=== PATIENT | female | born 1950 | race Two or more races ===

== ENCOUNTER 2016-05-28 08:17 | Inpatient (IN) | payer OTHER ==
[2016-05-28] MEDS ORDERED: SODIUM CHLORIDE 1,000 ML IV STA (08:53)
[2016-05-28] MEDS ORDERED: FAMOTIDINE 20 MG/50 ML IVPB 50 ML IVPB ONE (08:53)
[2016-05-28 09:48] LABS: BASOPHIL 0.6 % (0-2.0); EOSINOPHIL 0.8 % (0-4.5); MCH 27.5 pg (25.7-33.7); MCHC 32.1 g/dl (32.0-36.0); MEAN CELL VOLUME 85.7 fl (80-96); MEAN PLT VOLUME 9.7 fl (7.5-11.1); NEUTROPHILS 78.2 % (42.8-82.8); PLATELET COUNT 262 K/MM3 (134-434); RDW 14.4 % (11.6-15.6); WHITE BLOOD COUNT 10.9 K/mm3 (4.0-10.0)
[2016-05-28 10:14] LABS: ALBUMIN 3.9 g/dl (3.4-5.0); ANION GAP 10 (8-16); CALCIUM 9.4 mg/dL (8.5-10.1); CO2 25 mmol/L (21-32); CREATININE 0.8 mg/dL (0.55-1.02); GLUCOSE,RANDOM 99 mg/dL (74-106); SGPT/ALT 22 U/L (12-78)
[2016-05-28 10:31] LABS: BILIRUBIN,TOTAL 0.8 mg/dL (0.2-1.0); TOT PROT 7.3 g/dl (6.4-8.2)
[2016-05-28 10:32] LABS: ALK PHOS 69 U/L (45-117)
[2016-05-28 10:44] LABS: SGOT/AST 20 U/L (15-37)
--- NOTE | 2016-05-28 10:55 | PDOC ---
History of Present Illness - General Chief Complaint: Lightheaded Stated Complaint: DIZZINES,NAUSEA Time Seen by Provider: 05/28/16 09:02 History Source: Patient Exam Limitations: No Limitations - History of Present Illness Initial Comments: 05/28/16 13:02 HPI: This 65-year-old female comes in via ambulance with complaints of nausea and dizziness. She states it started this morning upon awakening. She states the room is spinning. She did not take anything today for medications. She does not have a fever and denies any vomiting, abdominal pain, headache, visual disturbances. Chief Compliant: Nausea and dizziness PMH: Hypothyroidism however 5 years ago it was determined she did not need any medications for this and was stopped. Recently has had chronic back pain from a fall in March taking naproxen 3 times a day. FH: Pt has not recently traveled outside the country in the last 30 days. Pt has not been in contact with people who have traveled out of the country, in contact with people who have been ill with fever, n, v, d. SH: smoking use: NONE illicit drug use: NONE alcohol use: NONE employment/educational status: sexual history: PSH: Denies Home med use noted on APR Allergies: NKDA Immunizations: PCP: Not on service and is in [place] Past History - Past Medical History Allergies/Adverse Reactions: Allergies Allergy/AdvReac Type Severity Reaction Status Date / Time No Known Allergies Allergy Verified 05/28/16 09:14 Home Medications: Ambulatory Orders NK [No Known Home Medication] 05/28/16 Asthma: Yes (environmental allergies induced) - Surgical History Cholecystectomy: Yes - Psycho/Social/Smoking Cessation Hx Anxiety: No Suicidal Ideation: No Smoking History: Never smoked Have you smoked in the past 12 months: No Information on smoking cessation initiated: No Hx Alcohol Use: No Drug/Substance Use Hx: No Substance Use Type: None Review of Systems - Review of Systems Able to Perform ROS?: Yes Comments:: 05/28/16 13:04 General statement: Feeling lightheaded and dizzy as well as some nausea without any fever or chills Hematology: neg history of bleeding/blood thinners Skin: Neg for lesions, rash, bruising. HEENT: Neg symptoms Respiratory: Neg SOB or difficulty in breathing Cardiac: Neg chest pain GI: Neg pain, positive for nausea without vomiting : Neg problems on voiding MS: Neg for joint pain/stiffness, no edema Neuro: Neg for LOC, weakness, positive dizziness Endocrine: Neg for excess thirst/hunger, cold/heat intolerance, excess sweating Allergies: Neg for allergies *Physical Exam - Vital Signs Last Vital Signs Temp Pulse Resp BP Pulse Ox 97 F L 57 L 18 150/76 100 05/28/16 08:20 05/28/16 08:20 05/28/16 08:20 05/28/16 08:20 05/28/16 08:20 - Physical Exam Comments: 05/28/16 13:05 General Appearance: This well appearing 65-year-old female V/S: hemodynamically stable, afebrile Skin: WNL of pt's skin color, no signs of pallor, mottling, cyanosis Head:symmetrical Eyes: EOM's intact, PERRLA Ears: denies pain Nose: patent Throat: lips, teeth, gums, tongue, buccal mucos pink and moist Lungs: Chest symmetry equal. Cap refill <3 seconds. Lung sounds clear Cardiac: PMI at R 4MCL space, pos S1 and S2, regular rate. Abdomen: Soft, round, nontender : Not observed Muscularskeletal: Gait steady, ambulated in to ER, no edema +PMS Neuro: AAOx3, cognitively intact, speech clear and appropriate. ED Treatment Course - LABORATORY CBC & Chemistry Diagram: 05/28/16 08:58 05/28/16 08:58 - ADDITIONAL ORDERS Additional order review: Laboratory Results 05/28/16 08:58 Sodium 141 Potassium 4.9 Chloride 106 Carbon Dioxide 25 Anion Gap 10 BUN 18 Creatinine 0.8 Creat Clearance w eGFR > 60 Random Glucose 99 Calcium 9.4 Total Bilirubin 0.8 AST 20 ALT 22 Alkaline Phosphatase 69 Total Protein 7.3 Albumin 3.9 Lipase 154 05/28/16 08:58 RBC 4.80 MCV 85.7 MCHC 32.1 RDW 14.4 MPV 9.7 Neutrophils % 78.2 Lymphocytes % 14.5 Monocytes % 5.9 Eosinophils % 0.8 Basophils % 0.6 - RADIOLOGY Radiology Studies Ordered: Category Date Time Status CHEST X-RAY PORTABLE* [RAD] Stat Radiology 05/28/16 08:53 Completed - Medications Given in the ED: ED Medications Discontinued Medications Generic Name Dose Route Start Last Admin Trade Name Freq PRN Reason Stop Dose Admin Famotidine/Sodium Chloride 50 mls @ 100 mls/hr 05/28/16 08:53 05/28/16 09:32 Pepcid 20 Mg Premixed Ivpb - IVPB 05/28/16 09:22 100 mls/hr ONCE ONE Administration Sodium Chloride 1,000 mls @ 1,000 mls/hr 05/28/16 08:53 05/28/16 09:22 Normal Saline - IV 05/28/16 09:52 1,000 mls/hr ASDIR STA Administration Medical Decision Making - Medical Decision Making 05/28/16 13:05 Patient was initially seen and examined. Patient found to have some dizziness especially when lifted up however on her EKG she was noted to have a heart rate in the 50s. She does not recall what her normal is and she does not typically take beta blockers. She was given some Zofran in the ambulance and now she states that her nausea has subsided. At this time she is also noted to have some flipped T's in her aVL. She will need admission for cardiac enzymes evaluation as well as monitoring her heart rate. I have called and spoken with Dr. Call who will be admitting her for telemetry observation with Dr. cabrera as a consult. *DC/Admit/Observation/Transfer Diagnosis at time of Disposition: Dizziness, Bradycardia - Discharge Dispostion Condition at time of disposition: Stable Admit: Yes
[2016-05-28 11:10] LABS: TROPONIN I < 0.02 ng/ml (0.00-0.05)
--- NOTE | 2016-05-28 11:14 | EKG ---
Test Reason : Blood Pressure : / mmHG Vent. Rate : 054 BPM Atrial Rate : 054 BPM P-R Int : 146 ms QRS Dur : 084 ms QT Int : 436 ms P-R-T Axes : 047 040 069 degrees QTc Int : 413 ms SINUS BRADYCARDIA WITH SINUS ARRHYTHMIA OTHERWISE NORMAL ECG NO PREVIOUS ECGS AVAILABLE Confirmed by ASTON KOCH MD ([id number]) on 05/28/2016 11:14:17 AM Referred By: Confirmed By:ASTON KOCH MD
--- NOTE | 2016-05-28 11:43 | PDOC ---
[id number]/76 100 05/28/16 08:20 05/28/16 08:20 05/28/16 08:20 05/28/16 08:20 05/28/16 08:20 - Physical Exam Comments: 05/28/16 11:41 well appearing. regular bradycardia neuro intact Heart Score/ECG Review #1 General ECG Interpretation: Sinus Rhythm, Normal Rate (shi 57), Normal Intervals, No acute ischemic changes (TWI AVL) ED Treatment Course - LABORATORY CBC & Chemistry Diagram: 05/28/16 08:58 05/28/16 08:58 - ADDITIONAL ORDERS Additional order review: Laboratory Results 05/28/16 08:58 Sodium 141 Potassium 4.9 Chloride 106 Carbon Dioxide 25 Anion Gap 10 BUN 18 Creatinine 0.8 Creat Clearance w eGFR > 60 Random Glucose 99 Calcium 9.4 Total Bilirubin 0.8 AST 20 ALT 22 Alkaline Phosphatase 69 Creatine Kinase 90 Troponin I < 0.02 Total Protein 7.3 Albumin 3.9 Lipase 154 05/28/16 08:58 RBC 4.80 MCV 85.7 MCHC 32.1 RDW 14.4 MPV 9.7 Neutrophils % 78.2 Lymphocytes % 14.5 Monocytes % 5.9 Eosinophils % 0.8 Basophils % 0.6 - Medications Given in the ED: ED Medications Discontinued Medications Generic Name Dose Route Start Last Admin Trade Name Freq PRN Reason Stop Dose Admin Famotidine/Sodium Chloride 50 mls @ 100 mls/hr 05/28/16 08:53 05/28/16 09:32 Pepcid 20 Mg Premixed Ivpb - IVPB 05/28/16 09:22 100 mls/hr ONCE ONE Administration Sodium Chloride 1,000 mls @ 1,000 mls/hr 05/28/16 08:53 05/28/16 09:22 Normal Saline - IV 05/28/16 09:52 1,000 mls/hr ASDIR STA Administration Medical Decision Making - Medical Decision Making 05/28/16 11:42 Patient seen and evaluated with the nurse practitioner. I agree with the overall evaluation, assessment, and management with the following summary of visit: 65y/o F with light-headedness and near syncope. VSS and exam normal except for sinus shi to 50s. Labs wnl. admitted to tele for shi monitoring, less consistent with central vertigo. *DC/Admit/Observation/Transfer Diagnosis at time of Disposition: Dizzy, Bradycardia - Discharge Dispostion Condition at time of disposition: Stable - Prescriptions
[2016-05-28 17:39] LABS: TROPONIN I < 0.02 ng/ml (0.00-0.05)
--- NOTE | 2016-05-28 19:46 | HP ---
Admitting History and Physical - Primary Care Physician PCP: Carroll Sood - Admission History of Present Illness: This 65-year-old female comes in via ambulance with complaints of nausea and dizziness. She states it started this morning upon awakening. She states the room is spinning. She did not take anything today for medications. She does not have a fever and denies any vomiting, abdominal pain, headache, visual disturbances. - Smoking History Smoking history: Never smoked Have you smoked in the past 12 months: No - Alcohol/Substance Use Hx Alcohol Use: No Home Medications - Allergies Allergies/Adverse Reactions: Allergies Allergy/AdvReac Type Severity Reaction Status Date / Time No Known Allergies Allergy Verified 05/28/16 09:14 - Home Medications Home Medications: Ambulatory Orders Meclizine HCl [Antivert -] 12.5 mg PO Q6HPO #20 tablet 05/29/16 Physical Examination Vital Signs: Vital Signs Temperature 97.6 F 05/28/16 17:20 Pulse Rate 71 05/28/16 17:20 Respiratory Rate 19 05/28/16 17:20 Blood Pressure 134/83 05/28/16 17:20 O2 Sat by Pulse Oximetry (%) 97 05/28/16 17:20 Constitutional: Yes: Anxious HENT: Yes: Atraumatic Neck: Yes: Supple Cardiovascular: Yes: Regular Rate and Rhythm, Bradycardia Respiratory: Yes: CTA Bilaterally Gastrointestinal: Yes: Normal Bowel Sounds Extremities: Yes: WNL Neurological: Yes: Alert, Oriented Problem List - Problems (1) Bradycardia Assessment/Plan: tele monitoring fu cardiac enzymes cardiology consult Code(s): R00.1 - BRADYCARDIA, UNSPECIFIED (2) Dizzy Assessment/Plan: could be BP vertigo will start meclizine Code(s): R42 - DIZZINESS AND GIDDINESS Assessment/Plan Laboratory Tests 05/28/16 05/28/16 05/28/16 08:58 08:58 16:48 WBC 10.9 H RBC 4.80 Hgb 13.2 Hct 41.1 MCV 85.7 MCHC 32.1 RDW 14.4 Plt Count 262 MPV 9.7 Neutrophils % 78.2 Lymphocytes % 14.5 Monocytes % 5.9 Eosinophils % 0.8 Basophils % 0.6 Sodium 141 Potassium 4.9 Chloride 106 Carbon Dioxide 25 Anion Gap 10 BUN 18 Creatinine 0.8 Creat Clearance w eGFR > 60 Random Glucose 99 Calcium 9.4 Total Bilirubin 0.8 AST 20 ALT 22 Alkaline Phosphatase 69 Creatine Kinase 90 77 Troponin I < 0.02 < 0.02 Total Protein 7.3 Albumin 3.9 Lipase 154
[2016-05-28] MEDS ORDERED: ACETAMINOPHEN 325 MG TABLET (FP) PO PRN (19:54)
[2016-05-28] MEDS ORDERED: MECLIZINE HCL 12.5 MG TABLET ONE (21:14)
[2016-05-28] MEDS: MECLIZINE HCL 12.5 MG TABLET PO SCH (21:25)
[2016-05-29] MEDS: MECLIZINE HCL 12.5 MG TABLET PO SCH ×4 (00:02→18:04)
[2016-05-29 01:32] VITALS: BP 143/92; PULSE 66
[2016-05-29] MEDS ORDERED: MECLIZINE HCL 12.5 MG TABLET ONE (05:11)
[2016-05-29 15:35] VITALS: TEMP 98.8
[2016-05-29 17:54] VITALS: BMI 36.0
--- NOTE | 2016-05-29 18:05 | PN ---
Progress Note (short form) - Note Progress Note: Chief Complaint: Events noted, notes reviewed, dizziness with associated nausea and diaphoresis consistent with benign positional vertigo and vagal stimulation , asymptomatic sinus bradycardia History of Present Illness: Seen and examined and examined in the ICU as telemetry hold. Full consult dictated - Current Medication List Current Medications Acetaminophen (Tylenol -) 650 mg PO Q6H PRN PRN Reason: FEVER OR PAIN Meclizine HCl (Antivert -) 12.5 mg PO Q6HPO BETI Last Admin: 05/29/16 13:36 Dose: 12.5 mg Review of Systems Cardiovascular: As noted above Respiratory: denies: denies: Cough or Sputum Production Gastrointestinal: reports: Nausea denies: Vomiting, Diarrhea, Constipation or Abdominal Discomfort Musculoskeletal: No Symptoms Reported Endocrine: No Symptoms Reported - Objective Vital Signs: Last Vital Signs Temp Pulse Resp BP Pulse Ox 98.8 F 66 18 143/92 97 05/29/16 15:31 05/29/16 01:31 05/29/16 15:31 05/29/16 01:31 05/28/16 23:58 Neck: Supple Negative JVD No Bruit Cardiovascular: S1 S2 Regular Rate and Rhythm No Murmurs Clicks or Gallops Respiratory: Clear to A&P Gastrointestinal: Soft Benign Normal Bowel Sounds Ext: Negative Edema Labs: CBC, BMP 05/28/16 08:58 05/28/16 08:58 Hepatic Panel Total Bilirubin 0.8 mg/dL (0.2-1.0) 05/28/16 08:58 AST 20 U/L (15-37) 05/28/16 08:58 ALT 22 U/L (12-78) 05/28/16 08:58 Alkaline Phosphatase 69 U/L (45-117) 05/28/16 08:58 Albumin 3.9 g/dl (3.4-5.0) 05/28/16 08:58 Assessment/Plan ASSESSMENT: 1. Clinical presentation with dizziness with associated nausea and diaphoresis consistent with benign positional vertigo and vagal stimulation 2. Asymptomatic sinus bradycardia 3. Diastolic HTN currently on no therapy PLAN: 1. Recommend Meclizine HCl (Antivert) therapy as per the primary team 2. Recommend outpatient F/U with PMD for blood pressure monitoring and therapy initiation accordingly 3. Recommend outpatient evaluation of the above noted sinus bradycardia including assessing chronotropic response, ETT and echocardiography to assess LV function Patient can be D/C home from cardiovascular point of view Thank you for the consult Sri De MD
--- NOTE | 2016-05-29 18:12 | DS ---
Physical Examination Vital Signs: Vital Signs Temperature 98.8 F 05/29/16 15:31 Pulse Rate 66 05/29/16 01:31 Respiratory Rate 18 05/29/16 15:31 Blood Pressure 143/92 05/29/16 01:31 O2 Sat by Pulse Oximetry (%) 97 05/28/16 23:58 Constitutional: Yes: No Distress HENT: Yes: Atraumatic Neck: Yes: Supple Cardiovascular: Yes: Regular Rate and Rhythm Respiratory: Yes: CTA Bilaterally Gastrointestinal: Yes: Normal Bowel Sounds Extremities: Yes: WNL Neurological: Yes: Alert, Oriented Discharge Summary Reason For Visit: DIZZINES,BRADYCARDIA Current Active Problems Bradycardia (Acute) Dizzy (Acute) Condition: Stable - Instructions Diet, Activity, Other Instructions: see your pmd to get clearance to go back to work - Home Medications Comprehensive Discharge Medication List: Ambulatory Orders Meclizine HCl [Antivert -] 12.5 mg PO Q6HPO #20 tablet 05/29/16 clinically stable no more dizziness or vertigo continue above meds see your pmd/cardiology 1 week
--- NOTE | 2016-05-29 20:03 | CONS ---
DATE OF CONSULTATION: 05/29/2016 CONSULTATION REQUESTED BY: Marilyn Sood MD CHIEF COMPLAINT: Dizziness with associated nausea, sinus bradycardia, cardiovascular evaluation. A 65-year-old female with no significant past medical history, who denied hypertensive cardiovascular disease, diabetes mellitus, hypercholesterolemia, tobacco abuse, or family history of premature coronary artery disease, who presented to [facility] Emergency Room with sudden onset of dizziness with associated nausea and profuse diaphoresis. Patient stated that upon awakening from sleep, she had sudden onset of nausea with associated dizziness, profuse diaphoresis. Patient denied any syncope. Patient denied any associated palpitations. Patient denied any vomiting. Patient did not report any chest discomfort. Patient denies any history of dyspnea, orthopnea, paroxysmal nocturnal dyspnea, or peripheral edema. Upon arrival to the emergency room, patient was noted to have evidence of sinus bradycardia, although hemodynamically she was stable. PAST MEDICAL HISTORY: History of Mojgan's thyroiditis, subsequently hypothyroidism, currently on no therapy. PAST SURGICAL HISTORY: Cholecystectomy and a gynecological procedure. SOCIAL HISTORY: Nonsmoker. FAMILY HISTORY: No family history of premature coronary artery disease. ALLERGIES: None reported. MEDICAL THERAPY AT HOME: None. REVIEW OF SYSTEMS: Head and Neck: Denies headache, photophobia, blurring of vision. Respiratory: No cough or sputum production. Cardiovascular: As noted above. Gastrointestinal: Reported nausea but denied any vomiting, diarrhea, constipation, or abdominal discomfort. Genitourinary: No symptoms reported. Musculoskeletal: No symptoms reported. PHYSICAL EXAMINATION: Vital Signs: Blood pressure is 143/92 mmHg. Pulse rate is 66 beats per minute. Head and Neck: Pupils equal, react to light and accommodation. Extraocular muscles are intact. Anicteric sclerae. Negative JVD. No bruit appreciated. Chest: Clear to auscultation and percussion. Cardiovascular: S1, S2 regular. No murmur, clicks or gallops. Abdomen: Soft, benign. Normoactive bowel sound. Extremities: Negative edema. Intact distal pulses. No calf tenderness. Electrocardiogram reveals sinus bradycardia with sinus arrhythmia and nonspecific T-wave abnormality. CBC revealed white cell count 10.9, hemoglobin 13.2, platelets 262, basic metabolic profile revealed a sodium 141, potassium 4.9, BUN 18, creatinine 0.8, glucose 99, with normal liver profile. CPK, troponins were noted. ASSESSMENT: 1. Clinical presentation with dizziness, with associated nausea and profuse diaphoresis consistent with benign positional vertigo and vagal stimulation. 2. Asymptomatic sinus bradycardia. 3. Diastolic hypertension, currently on no therapy. RECOMMENDATION: 1. Recommend meclizine (Antivert) therapy as per the primary team. 2. Recommend outpatient followup with PMD for blood pressure monitoring and therapy initiation accordingly. Patient was counseled lifestyle modification. 3. Recommend outpatient evaluation of the above-noted sinus bradycardia including assessing chronotropic response by performing exercise tolerance test and echocardiography to assess left ventricular systolic function. Patient can be discharged home, from the cardiovascular point of view. Thank you for the kind referral. KEVIN REYES M.D. [id number]
== END 2016-05-29 19:04 | disposition home or self-care (01) | DRG 201 ==
LOC: JER 08:17 → JERBED 13:07 → JICU 05-29 12:10
PROVIDERS: ADMIT Internal Medicine; ATTEND Internal Medicine
DX: R00.1 Bradycardia, unspecified (principal); H81.10 Benign paroxysmal vertigo, unspecified ear; I10 Essential (primary) hypertension
CPT/HCPCS: 36415; 71010-TC; 80053; 82550; 83690; 84484; 85025; 93005; 93010; 99285-25